=== PATIENT | male | born 2000 | race Caucasian/White ===

== ENCOUNTER 2023-07-16 12:18 | Emergency (ER) | payer OTHER ==
[2023-07-16 12:31] VITALS: BP 123/60; PULSE 90; RESP 18; TEMP 101.1; BMI 19.7
[2023-07-16] MEDS ORDERED: ACETAMINOPHEN 500 MG TABLET (FP) ONE (13:05)
[2023-07-16] MEDS: ACETAMINOPHEN 500 MG TABLET (FP) PO ONE (13:08)
[2023-07-16] MEDS ORDERED: guaiFENesin/D-METHORPHAN HB 10 ML UNIT-DOSE CUPS ONE (14:27)
[2023-07-16] MEDS ORDERED: IBUPROFEN 600 MG TABLET (FP) PO ONE (14:28)
[2023-07-16] MEDS: IBUPROFEN 600 MG TABLET (FP) PO ONE (14:30)
[2023-07-16] MEDS: guaiFENesin/D-METHORPHAN HB 10 ML UNIT-DOSE CUPS PO ONE (14:30)
== END 2023-07-16 15:16 | disposition home or self-care (01) ==
LOC: JERFT 12:18
DX: R50.9 Fever, unspecified (principal); R09.81 Nasal congestion; R05.9 Cough, unspecified; R53.83 Other fatigue; J10.1 Influenza due to other identified influenza virus with other respiratory manifestations; Z20.822 Contact with and (suspected) exposure to COVID-19
CPT/HCPCS: 0241U-QW; 87651; 99283-25